=== PATIENT | female | born 1980 | race African-American/Black ===

== ENCOUNTER 2017-04-22 10:34 | Emergency (ER) | payer OTHER ==
[~2017-04-22] VITALS: Ht 162.6 cm; Wt 89.4 kg
[~2017-04-22 10:34] MED LIST: AMOX1TAB61 PO; FLUC150T PO; PRED20TA PO
[2017-04-22 10:53] VITALS: BP 126/85
[2017-04-22] MEDS ORDERED: LEVO750T31 PO (11:17)
--- NOTE | 2017-04-22 11:18 | PHYS DOC ---
Past Medical History Past Medical History: Hypertension Past Surgical History: Other Additional Past Surgical Histo: breast biopsy, R CARPAL TUNNEL Alcohol Use: Occasionally Drug Use: None Adult General Chief Complaint Chief Complaint: COUGH HPI HPI Patient is a 36 year old male presents to the emergency department stating that she has been having frontal sinus and maxillary sinus tenderness for the last 2 weeks. Patient states that she was seen by her primary care physician on 04/11 and was placed on amoxicillin was recommended Sudafed and Mucinex DM however she states these medications have not helped. Patient states she also has a history of high blood pressure. She states that she's had a productive cough that she was unable to provide the color of the secretions. She denies any fever, chills or any nausea or vomiting. Review of Systems Review of Systems Constitutional: Denies fever or chills [] Eyes: Denies change in visual acuity, redness, or eye pain [] HENT: nasal congestion denies sore throat [] Respiratory: Denies cough or shortness of breath [] Cardiovascular: No additional information not addressed in HPI [] GI: Denies abdominal pain, nausea, vomiting, bloody stools or diarrhea [] : Denies dysuria or hematuria [] Musculoskeletal: Denies back pain or joint pain [] Integument: Denies rash or skin lesions [] Neurologic: Denies headache, focal weakness or sensory changes [] Endocrine: Denies polyuria or polydipsia [] All other systems were reviewed and found to be within normal limits, except as documented in this note. Allergies Allergies Allergies Coded Allergies Type Severity Reaction Last Updated Verified No Known Drug Allergies 06/20/14 No Physical Exam Physical Exam Constitutional: Well developed, well nourished, no acute distress, non-toxic appearance. [] HENT: Normocephalic, atraumatic, bilateral external ears normal, oropharynx moist, no oral exudates, nose normal. Tympanic membranes appear to be normal. Throat with no erythematous. There is with bilateral swelling noted. Patient was frontal and maxillary sinus tenderness. Eyes: PERRLA, EOMI, conjunctiva normal, no discharge. [] Neck: Normal range of motion, no tenderness, supple, no stridor. [] Cardiovascular:Heart rate regular rhythm, no murmur [] Lungs & Thorax: Bilateral breath sounds clear to auscultation [] Skin: Warm, dry, no erythema, no rash. [] Extremities: No tenderness, no cyanosis, no clubbing, ROM intact, no edema. [] Neurologic: Alert and oriented X 3, normal motor function, normal sensory function, no focal deficits noted. [] Psychologic: Affect normal, judgement normal, mood normal. [] Current Patient Data Vital Signs Vital Signs Date Time Temp Pulse Resp B/P (MAP) Pulse Ox O2 Delivery O2 Flow Rate FiO2 04/22/17 10:53 98.4 96 18 100 Room Air 98.4 EKG EKG [] Radiology/Procedures Radiology/Procedures [] Course & Med Decision Making Course & Med Decision Making Pertinent Labs and Imaging studies reviewed. (See chart for details) Patient denies any chances being . She'll be placed on Levaquin 750 mg daily for the next 5 days with recommendations to use Coricidin HBP as well as Mucinex DM. Urged to use Tylenol and ibuprofen for fever chills or generalized body aches and discomfort. Recommended plenty of fluids. [] I've spoken with the patient and/or caregivers. I've explained the patient's condition, diagnosis and treatment plan based on information available to me at this time. I've answered the patient's and/or caregivers questions and addressed any concerns. The patient and/or caregivers have a good understanding the patient's diagnosis, condition and treatment plan as can be expected at this point. Vital signs have been stabilized. The patient's condition is stable for discharge from the emergency department. The patient will pursue further outpatient evaluation with her primary care provider or other designated consulting physician as outlined in the discharge instructions. Patient and/or caregivers are agreeable to this plan of care and follow-up instructions have been explained in detail. The patient and/or caregivers have received these instructions in written format and expressed understanding of these discharge instructions. The patient and her caregivers are aware that if any significant change in condition or worsening of symptoms should prompt him to immediately return to this of the closest emergency department.~ If an emergent department is not readily available I would encourage him to call 911. Zacarias Disclaimer Zacarias Disclaimer This electronic medical record was generated, in whole or in part, using a voice recognition dictation system. Departure Departure Impression: Primary Impression: Sinusitis, acute Disposition: HOME, SELF-CARE Condition: STABLE Referrals: KAZ CARO MD (PCP) Patient Instructions: Sinusitis, [id number] Additional Instructions: Activity as tolerated Medication as prescribed Tylenol or Ibuprofen for fever, chills or generalized body aches Coricidin HBP and Mucinex DM as directed by manufacture over the counter Drink plenty of fluids Followup with primary care provider in 5-7 days Return to emergency department as needed for signs and symptoms that become worse. Scripts Levofloxacin (LEVAQUIN) 750 Mg Tablet 1 TAB PO DAILY, #5 TAB Prov: CATHERINE KEYS APRN 04/22/17 CATHERINE KEYS APRN Apr 22, 2017 11:18
== END 2017-04-22 11:23 | disposition home or self-care (01) ==
LOC: ER 10:34
DX: J01.10 Acute frontal sinusitis, unspecified (principal); J01.00 Acute maxillary sinusitis, unspecified; I10 Essential (primary) hypertension
CPT/HCPCS: 99283